=== PATIENT | female | born 1965 | race African-American/Black ===

== ENCOUNTER 2016-12-24 10:51 | Inpatient (IN) | payer OTHER ==
[2016-12-24 12:24] VITALS: BMI 23.3
--- NOTE | 2016-12-24 15:36 | HP ---
Admission [facility] - [facility] Chief Complaint: REHAB TX FOR DRUGS AND ALCOHOL DEPENDENCE Allergies/Adverse Reactions: Allergies Allergy/AdvReac Type Severity Reaction Status Date / Time No Known Allergies Allergy Verified 12/24/16 13:38 History of Present Illness: 51 Y/O AA/FEMALE WITH A HX OF HEROIN,COCAINE AND ALCOHOL DEPENDENCE SEEKING REHAB TX. Exam Limitations: No Limitations - Ebola screening Have you traveled outside of the country in the last 21 days: No Have you had contact with anyone from an Ebola affected area: No Have you been sick,other than usual withdrawal symptoms: No Do you have a fever: No - Review of Systems Constitutional: Loss of Appetite, Changes in sleep, Unintentional Wgt. Loss EENT: reports: Blurred Vision, Dental Problems (MISSING TEETH/KIRAN. DENTURES), Other (HX BILATERAL GLAUCOMA.) Respiratory: reports: Shortness of Breath (HX ASTHMA), Wheezing Cardiac: reports: No Symptoms Reported GI: reports: Constipated, Poor Appetite : reports: No Symptoms Reported Musculoskeletal: reports: Back Pain Integumentary: reports: Rash (FROM THE BELT CONTACT) Neuro: reports: Headache Endocrine: reports: No Symptoms Reported Hematology: reports: No Symptoms Reported Psychiatric: reports: Orientated x3, Anxious, Depressed Other Systems: Reviewed and Negative Patient History - Patient Medical History Hx Anemia: Yes Hx Asthma: Yes (MDI) Hx Chronic Obstructive Pulmonary Disease (COPD): Yes Hx Cancer: No Hx Cardiac Disorders: No Hx Congestive Heart Failure: No Hx Hypertension: Yes (ON MED) Hx Hypercholesterolemia: No Hx Pacemaker: No HX Cerebrovascular Accident: No Hx Seizures: No Hx Dementia: No Hx Diabetes: Yes (Now not on medication--"I DON'T HAVE IT ANYMORE".) Hx Gastrointestinal Disorders: No Hx Liver Disease: No Hx Genitourinary Disorders: No Hx Sexually Transmitted Disorders: No Hx Renal Disease (ESRD): Yes (KIDNEY STONES IN 1991) Hx Thyroid Disease: No Hx Human Immunodeficiency Virus (HIV): No (NEGATIVE HX) Hx Hepatitis C: No Hx Depression: Yes (ON MEDS) Hx Suicide Attempt: No (DENIES) Hx Bipolar Disorder: Yes Hx Schizophrenia: No - Patient Surgical History Past Surgical History: Yes Hx Cholecystectomy: Yes (1989) Anesthesia Reaction: No - PPD History Previous Implant?: Yes Documented Results: Negative w/o proof Implanted On Prior R Admission?: No PPD to be Administered?: Yes - Reproductive History Patient is a Female of Child Bearing Age (11 -55 yrs old): Yes Last Menstrual Period: 08/09/10 Patient : No - Smoking Cessation Smoking history: Current every day smoker Have you smoked in the past 12 months: Yes Aproximately how many cigarettes per day: 5 Hx Chewing Tobacco Use: No Initiated information on smoking cessation: Yes 'Breaking Loose' booklet given: 12/24/16 - Substance & Tx. History Hx Alcohol Use: Yes (BEER "ONCE IN A BLUE OLIVAS") Hx Substance Use: Yes (HEROIN/COCAINE) Substance Use Type: Alcohol, Cocaine, Heroin Hx Substance Use Treatment: Yes ([facility]-DETOX) Family Disease History - Family Disease History Family Disease History: CA: Father ( prostate CA), Mother ( lung /breast CA), Other: Brother (AIDS ) Admission Physical Exam BHS - Vital Signs Vital Signs: Vital Signs - 24 hr 12/24/16 12:15 Temperature 96.4 F L Pulse Rate 68 Respiratory 18 Rate Blood Pressure 128/57 - Physical General Appearance: Yes: No Apparent Distress, Anxious HEENTM: Yes: EOMI, Normocephalic, [place], Pharynx Normal Respiratory: Yes: Chest Non-Tender, Lungs Clear, Normal Breath Sounds, No Respiratory Distress Neck: Yes: No masses,lesions,Nodules, Supple, Trachea in good position Breast: Yes: Breast Exam Deferred Cardiology: Yes: Regular Rhythm, Regular Rate, S1, S2 Abdominal: Yes: Normal Bowel Sounds, Non Tender, Soft Genitourinary: Yes: Other (N/C) Back: Yes: Within Normal Limits Musculoskeletal: Yes: full range of Motion, Gait Steady Extremities: Yes: Normal Range of Motion, Non-Tender Neurological: Yes: dietary supervisor II-XII NML intact, Fully Oriented, Alert Integumentary: Yes: Dry, Warm, Other (HEALED DARK SCARS ON LOWER EXTREMITIES.) Lymphatic: Yes: Within Normal Limits - Diagnostic (1) Asthma Current Visit: Yes Status: Chronic Qualifiers: Asthma severity: mild intermittent Asthma complication type: uncomplicated Qualified Code(s): J45.20 - Mild intermittent asthma, uncomplicated (2) Hypertension Current Visit: Yes Status: Chronic Qualifiers: Hypertension type: essential hypertension Qualified Code(s): I10 - Essential (primary) hypertension (3) Methadone maintenance therapy patient Current Visit: No Status: Inactive (4) Opioid dependence with withdrawal Current Visit: Yes Status: Chronic (5) Cocaine dependence, uncomplicated Current Visit: Yes Status: Chronic (6) History of depression Current Visit: Yes Status: Chronic (7) Contact dermatitis Current Visit: Yes Status: Acute Qualifiers: Contact dermatitis type: unspecified Contact dermatitis trigger: metal Qualified Code(s): L23.0 - Allergic contact dermatitis due to metals Comment: LOWER ABDOMEN ON BELT LEVEL Cleared for Admission S - Detox or Rehab Claeared for Rehab Admission: Yes [facility] Breath Alcohol Content Breath Alcohol Content: 0 Urine Pregancy Test - Result Urine Test Results: Negative- NO Line Present Urine Drug Screen - Results Drug Screen Negative: No Urine Drug Screen Results: TIAGO-Cocaine, OPI-Opiates
[2016-12-24] MEDS ORDERED: IBUPROFEN 400 MG TABLET (FP) PO PRN (15:54)
[2016-12-24] MEDS ORDERED: MAG HYDROX/AL HYDROX/SIMETH 30 ML UNIT-DOSE CUP PO PRN (15:54)
[2016-12-24] MEDS ORDERED: hydrOXYzine PAMOATE 25 MG CAPSULE (FP) PO PRN (15:54)
[2016-12-24] MEDS ORDERED: ACETAMINOPHEN 325 MG TABLET (FP) PO PRN (15:54)
[2016-12-24] MEDS ORDERED: P-EPHED 60MG/TRIPROLIDI 2.5MG TABLET PO PRN (15:54)
[2016-12-24] MEDS ORDERED: MENTHOL/PHENOL 1 EACH UD MM PRN (15:54)
[2016-12-24] MEDS ORDERED: MAGNESIUM CITRATE 300 ML BOTTLE PO PRN (15:54)
[2016-12-24] MEDS ORDERED: MAGNESIUM HYDROX 2400MG/30ML ORAL SUSPENSION 30 ML CUP PO PRN (15:54)
[2016-12-24] MEDS ORDERED: LOPERAMIDE HCL 2 MG CAPSULE PO PRN (15:54)
[2016-12-24] MEDS ORDERED: guaiFENesin/D-METHORPHAN HB 10 ML UNIT-DOSE CUPS PO PRN (15:54)
[2016-12-24] MEDS ORDERED: ALBUTEROL SO4 6.7 GM HFA INHALER IH PRN ×2 (15:56→18:16)
[2016-12-24 20:13] LABS: URINE APPEARANCE SLCLOUDY; URINE BILIRUBIN NEGATIVE (NEGATIVE); URINE BLOOD NEGATIVE (NEGATIVE); URINE COLOR YELLOW; URINE GLUCOSE (UA) NEGATIVE (NEGATIVE); URINE KETONE NEGATIVE (NEGATIVE); URINE LEUK ESTERASE NEGATIVE (NEGATIVE); URINE NITRITE NEGATIVE (NEGATIVE); URINE PROTEIN NEGATIVE (NEGATIVE); URINE UROBILINOGEN 2.0 E.U/dl E.U./dl (0.2-1.0)
[2016-12-24] MEDS: BUDESONIDE/FORMETEROL FUMARATE 160/4.5 mcg INHALER IH SCH (21:30)
[2016-12-24] MEDS: CLOTRIMAZOLE/BETAMET DIPROP TOPICAL CREAM 45 GM TUBE TP SCH (21:30)
[2016-12-24] MEDS: LATANOPROST 0.005% OPHTH SOLN 2.5ML BOTTLE OU SCH (21:31)
[2016-12-24] MEDS: THIAMINE HCL 100 MG TABLET (FP) PO SCH (21:32)
[2016-12-24] MEDS: PROPRANOLOL HCL 20 MG TABLET PO SCH (21:32)
[2016-12-24] MEDS: ACLIDINIUM BROMIDE 400 MCG/INH AERO.POWD IH SCH (21:35)
[2016-12-24] MEDS: NICOTINE 14 MG/24 HOURS TOPICAL PATCH TD SCH (21:36)
[2016-12-25] MEDS ORDERED: PT OWN MED DRAWER 7, Y5N ONE ×3 (08:25→20:06)
[2016-12-25] MEDS: NAPROXEN SODIUM 550 MG PO SCH (10:04)
[2016-12-25] MEDS: CLOTRIMAZOLE/BETAMET DIPROP TOPICAL CREAM 45 GM TUBE TP SCH ×2 (10:04→21:27)
[2016-12-25] MEDS: BUDESONIDE/FORMETEROL FUMARATE 160/4.5 mcg INHALER IH SCH ×2 (10:05→21:22)
[2016-12-25] MEDS: NICOTINE 14 MG/24 HOURS TOPICAL PATCH TD SCH (10:05)
[2016-12-25] MEDS: PRENATAL VITAMINS W/ FOLIC ACID TABLET (FP) PO SCH (10:05)
[2016-12-25] MEDS: NICOTINE POLACRILEX 2 MG GUM BC PRN ×3 (10:07→21:26)
[2016-12-25 10:08] LABS: MCH 31.5 pg (25.7-33.7); MCHC 33.7 g/dl (32.0-36.0); MEAN CELL VOLUME 93.5 fl (80-96); MEAN PLT VOLUME 9.8 fl (7.5-11.1); PLATELET COUNT 121 K/MM3 (134-434); WHITE BLOOD COUNT 4.3 K/mm3 (4.0-10.0)
[2016-12-25 10:22] LABS: ALBUMIN 3.5 g/dl (3.4-5.0); ANION GAP 5 (8-16); CO2 30 mmol/L (21-32); GLUCOSE,RANDOM 89 mg/dL (74-106); SGOT/AST 7 U/L (15-37); SGPT/ALT 13 U/L (12-78)
[2016-12-25 10:24] LABS: ALK PHOS 61 U/L (45-117); BILIRUBIN,TOTAL 0.3 mg/dL (0.2-1.0); CREATININE 0.9 mg/dL (0.55-1.02); TOT PROT 6.4 g/dl (6.4-8.2)
[2016-12-25] MEDS: ACLIDINIUM BROMIDE 400 MCG/INH AERO.POWD IH SCH ×2 (11:00→21:22)
[2016-12-25] MEDS ORDERED: INFLUENZA VACCINE 45 MCG/0.5 ML (MDV 16-17) IM ONE (12:00)
[2016-12-25 12:57] LABS: HIV 1 & 2 AB NEGATIVE; HIV 1 AGp24 NEGATIVE
[2016-12-25] MEDS: CITALOPRAM HYDROBROMIDE 10 MG TABLET (FP) PO SCH (12:59)
[2016-12-25] MEDS: busPIRone HCL 10 MG TABLET (FP) PO SCH ×2 (12:59→21:24)
--- NOTE | 2016-12-25 21:06 | EKG ---
Test Reason : Blood Pressure : / mmHG Vent. Rate : 058 BPM Atrial Rate : 058 BPM P-R Int : 108 ms QRS Dur : 084 ms QT Int : 480 ms P-R-T Axes : 037 056 071 degrees QTc Int : 471 ms SINUS BRADYCARDIA WITH SHORT UT MINIMAL VOLTAGE CRITERIA FOR LVH, MAY BE NORMAL VARIANT BORDERLINE ECG NO PREVIOUS ECGS AVAILABLE Confirmed by MITCHEL RUTH MD ([id number]) on 12/25/2016 9:05:38 PM Referred By: Rebekah Ryder Confirmed By:MITCHEL RUTH MD
[2016-12-25] MEDS: LATANOPROST 0.005% OPHTH SOLN 2.5ML BOTTLE OU SCH (21:23)
[2016-12-25] MEDS: THIAMINE HCL 100 MG TABLET (FP) PO SCH (21:23)
[2016-12-25] MEDS: PROPRANOLOL HCL 20 MG TABLET PO SCH (21:24)
[2016-12-25] MEDS: diphenhydrAMINE HCL 50 MG CAPSULE PO PRN (21:25)
[2016-12-26] MEDS ORDERED: PT OWN MED DRAWER 7, Y5N ONE ×2 (08:24→20:18)
[2016-12-26] MEDS: ACLIDINIUM BROMIDE 400 MCG/INH AERO.POWD IH SCH ×2 (09:46→21:19)
[2016-12-26] MEDS: BUDESONIDE/FORMETEROL FUMARATE 160/4.5 mcg INHALER IH SCH ×2 (09:46→21:19)
[2016-12-26] MEDS: CITALOPRAM HYDROBROMIDE 10 MG TABLET (FP) PO SCH (09:47)
[2016-12-26] MEDS: NAPROXEN SODIUM 550 MG PO SCH (09:47)
[2016-12-26] MEDS: CLOTRIMAZOLE/BETAMET DIPROP TOPICAL CREAM 45 GM TUBE TP SCH ×2 (09:47→21:22)
[2016-12-26] MEDS: busPIRone HCL 10 MG TABLET (FP) PO SCH ×2 (09:47→21:21)
[2016-12-26] MEDS: PRENATAL VITAMINS W/ FOLIC ACID TABLET (FP) PO SCH (09:48)
[2016-12-26] MEDS: NICOTINE 14 MG/24 HOURS TOPICAL PATCH TD SCH (09:48)
[2016-12-26] MEDS: NICOTINE POLACRILEX 2 MG GUM BC PRN ×3 (09:49→17:57)
[2016-12-26] MEDS: THIAMINE HCL 100 MG TABLET (FP) PO SCH (21:20)
[2016-12-26] MEDS: LATANOPROST 0.005% OPHTH SOLN 2.5ML BOTTLE OU SCH (21:21)
[2016-12-26] MEDS: diphenhydrAMINE HCL 50 MG CAPSULE PO PRN (21:21)
[2016-12-26] MEDS: PROPRANOLOL HCL 20 MG TABLET PO SCH (21:21)
[2016-12-27 06:49] VITALS: TEMP 98
[2016-12-27] MEDS: NICOTINE 14 MG/24 HOURS TOPICAL PATCH TD SCH (10:15)
[2016-12-27] MEDS: busPIRone HCL 10 MG TABLET (FP) PO SCH (10:15)
[2016-12-27] MEDS: NAPROXEN SODIUM 550 MG PO SCH (10:15)
[2016-12-27] MEDS: PRENATAL VITAMINS W/ FOLIC ACID TABLET (FP) PO SCH (10:15)
[2016-12-27] MEDS: CITALOPRAM HYDROBROMIDE 10 MG TABLET (FP) PO SCH (10:15)
[2016-12-27] MEDS: ACLIDINIUM BROMIDE 400 MCG/INH AERO.POWD IH SCH (10:16)
[2016-12-27] MEDS: BUDESONIDE/FORMETEROL FUMARATE 160/4.5 mcg INHALER IH SCH (10:16)
[2016-12-27] MEDS: CLOTRIMAZOLE/BETAMET DIPROP TOPICAL CREAM 45 GM TUBE TP SCH (10:17)
[2016-12-27] MEDS: NICOTINE POLACRILEX 2 MG GUM BC PRN (10:17)
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
[2016-12-27] MEDS ORDERED: amLODIPine BESYLATE 10 MG TABLET (FP) PO SCH (12:15)
[2016-12-27 12:55] VITALS: BP 162/95; PULSE 63
--- NOTE | 2016-12-27 16:38 | PN ---
SANJAY Progress Note Note: Patient came to my office and reports that she decided to sign out tomorrow since she has something important to do at home.Patient ignored our recommendations to continue stabilization in inpatient rehabilitation and is willing to continue aftercare at [facility] in the [place].She will continue current medications as per plan .Scripts for 30 days provided.
== END 2016-12-27 23:01 | disposition left against medical advice (07) | DRG 770 ==
LOC: YASAS 10:51 → Y3E 16:32
PROVIDERS: ADMIT Psychiatry & Neurology Psychiatry; ATTEND Psychiatry & Neurology Psychiatry
PROC: HZ42ZZZ Group Counseling for Substance Abuse Treatment, Cognitive-Behavioral (ICD-10-PCS; principal; 2016-12-27)
DX: F11.23 Opioid dependence with withdrawal (principal); F14.20 Cocaine dependence, uncomplicated; F31.89 Other bipolar disorder; I10 Essential (primary) hypertension; L23.0 Allergic contact dermatitis due to metals
CPT/HCPCS: 36415; 80053; 81003; 85027; 86593; 87389; 93005; 93010

== ENCOUNTER 2018-06-28 10:56 | Inpatient (IN) | payer OTHER ==
[2018-06-28 12:03] VITALS: BMI 25.0
--- NOTE | 2018-06-28 12:25 | HP ---
Admission [facility] - [facility] Chief Complaint: i minerva help to go to rehab from heroin and cocaine Allergies/Adverse Reactions: Allergies Allergy/AdvReac Type Severity Reaction Status Date / Time No Known Allergies Allergy Verified 06/28/18 12:08 History of Present Illness: this 53 years old female with heroin and cocaine dependence seeking rehab,last treatment [facility] 12/27/16 to 12/27/16 not completed hypertention and copd nicotine dependence bipolar disorder multiple admissions in detox and rehab but relapsing longest sobriety 7 years glaucoma in right eye for 4 years on suboxone maintenance 8mgs/2mgs sl film daily last filled prescription Exam Limitations: No Limitations - Ebola screening Have you traveled outside of the country in the last 21 days: No Have you had contact with anyone from an Ebola affected area: No Have you been sick,other than usual withdrawal symptoms: No Do you have a fever: No - Review of Systems Constitutional: No Symptoms Reported EENT: reports: No Symptoms Reported, Other (glaucoma right eye for 4 years) Respiratory: reports: Other (copd) Cardiac: reports: No Symptoms Reported GI: reports: No Symptoms Reported : reports: No Symptoms Reported Musculoskeletal: reports: No Symptoms Reported Integumentary: reports: No Symptoms Reported Neuro: reports: No Symptoms reported Endocrine: reports: No Symptoms Reported Hematology: reports: No Symptoms Reported Psychiatric: reports: No Sypmtoms Reported, Judgement Intact, Mood/Affect Appropiate, Orientated x3 (bipolar disorder) Patient History - Patient Medical History Hx Anemia: Yes Hx Chronic Obstructive Pulmonary Disease (COPD): Yes (on albuterol and symbicort and spiriva) Hx Cancer: No Hx Cardiac Disorders: No Hx Congestive Heart Failure: No Hx Hypertension: Yes (ON MED) Hx Hypercholesterolemia: No Hx Pacemaker: No HX Cerebrovascular Accident: No Hx Seizures: No Hx Dementia: No Hx Diabetes: Yes (Now not on medication--"I DON'T HAVE IT ANYMORE".) Hx Gastrointestinal Disorders: No Hx Liver Disease: No Hx Genitourinary Disorders: No Hx Sexually Transmitted Disorders: No Hx Renal Disease (ESRD): Yes (KIDNEY STONES IN 1991) Hx Thyroid Disease: No Hx Human Immunodeficiency Virus (HIV): No (NEGATIVE HX 11/17 ) Hx Hepatitis C: No Hx Depression: Yes (ON MEDS) Hx Suicide Attempt: No (DENIES) Hx Bipolar Disorder: Yes Hx Schizophrenia: No Other Medical History: no suicidal,no homicidal - Patient Surgical History Past Surgical History: Yes Hx Neurologic Surgery: No Hx Cataract Extraction: No Hx Cardiac Surgery: No Hx Lung Surgery: No Hx Breast Surgery: No Hx Breast Biopsy: No Hx Abdominal Surgery: No Hx Appendectomy: No Hx Cholecystectomy: Yes (1989) Hx Genitourinary Surgery: No Hx Section: No Hx Orthopedic Surgery: No Anesthesia Reaction: No - PPD History Previous Implant?: Yes Documented Results: Negative w/o proof Implanted On Prior [facility] Admission?: Yes Date: 12/26/16 PPD to be Administered?: Yes - Reproductive History Patient is a Female of Child Bearing Age (11 -55 yrs old): Yes Last Menstrual Period: 08/09/10 Patient : No - Smoking Cessation Smoking history: Current every day smoker Have you smoked in the past 12 months: Yes Aproximately how many cigarettes per day: 5 Hx Chewing Tobacco Use: No Initiated information on smoking cessation: Yes 'Breaking Loose' booklet given: 06/28/18 - Substance & Tx. History Hx Alcohol Use: No Hx Substance Use: Yes Substance Use Type: Cocaine, Heroin Hx Substance Use Treatment: Yes ([facility] 12/24/16 to 12/27/16 not completed) - Substances Abused Heroin Route: Inhalation Frequency: 3-6 times per week Amount used: 1-2 BAGS Age of first use: 32 Date of Last Use: 06/27/18 Crack Route: Smoking Frequency: Daily Amount used: $50 Age of first use: 19 Date of Last Use: 06/28/18 Family Disease History - Family Disease History Family Disease History: CA: Father ( prostate CA), Mother ( lung /breast CA), Other: Brother (AIDS ) Admission Physical Exam BHS - Vital Signs Vital Signs: Vital Signs - 24 hr 06/28/18 12:00 Temperature 97.2 F L Pulse Rate 72 Respiratory 20 Rate Blood Pressure 172/97 - Physical General Appearance: Yes: Within Normal Limits HEENTM: Yes: Hearing grossly Normal, Normal ENT Inspection, Pharynx Normal, Other (glaucoma right eye) Respiratory: Yes: Lungs Clear, Normal Breath Sounds, No Respiratory Distress Neck: Yes: Within Normal Limits, Supple, Trachea in good position Breast: Yes: Breast Exam Deferred Cardiology: Yes: Within Normal Limits, Regular Rhythm, Regular Rate, S1, S2 Abdominal: Yes: Within Normal Limits, Normal Bowel Sounds, Non Tender, Flat, Soft Genitourinary: Yes: Within Normal Limits Back: Yes: Within Normal Limits Musculoskeletal: Yes: Within Normal Limits Extremities: Yes: Within Normal Limits Neurological: Yes: tool marker II-XII NML intact, Fully Oriented, Alert, Motor Strength 5/5 Integumentary: Yes: Within Normal Limits Lymphatic: Yes: Within Normal Limits - Diagnostic (1) Heroin dependence Current Visit: Yes Status: Acute (2) Cocaine dependence Current Visit: Yes Status: Acute (3) Hypertension Current Visit: No Status: Chronic Qualifiers: Hypertension type: essential hypertension Qualified Code(s): I10 - Essential (primary) hypertension (4) OPCD (olivopontocerebellar degeneration) Current Visit: Yes Status: Acute (5) COPD (chronic obstructive pulmonary disease) Current Visit: Yes Status: Acute (6) Weight loss Current Visit: Yes Status: Acute (7) Encounter for monitoring Suboxone maintenance therapy Current Visit: Yes Status: Acute Cleared for Admission BHS - Detox or Rehab Claeared for Rehab Admission: Yes [facility] Breath Alcohol Content Breath Alcohol Content: 0 Urine Pregancy Test - Result Urine Test Results: Negative- NO Line Present Urine Drug Screen - Results Drug Screen Negative: No Urine Drug Screen Results: TIAGO-Cocaine, OPI-Opiates Inpatient Rehab Admission - Initial Determination Are CD services needed?: Yes Free of communicable disease: Yes Not in need of hospitalization: Yes - Rehab Admission Criteria Previous failed treatment: Yes Poor recovery environment: Yes Comorbidities: Yes Lacks judgement: No Patient is meeting Inpatient Rehab admission criteria:: Yes
[2018-06-28] MEDS ORDERED: ACETAMINOPHEN 325 MG TABLET (FP) PO PRN (12:49)
[2018-06-28] MEDS ORDERED: guaiFENesin/D-METHORPHAN HB 10 ML UNIT-DOSE CUPS PO PRN (12:49)
[2018-06-28] MEDS ORDERED: MAG HYDROX/AL HYDROX/SIMETH 30 ML UNIT-DOSE CUP PO PRN (12:49)
[2018-06-28] MEDS ORDERED: MAGNESIUM HYDROX 2400MG/30ML ORAL SUSPENSION 30 ML CUP PO PRN (12:49)
[2018-06-28] MEDS ORDERED: LOPERAMIDE HCL 2 MG CAPSULE PO PRN (12:49)
[2018-06-28] MEDS ORDERED: MAGNESIUM CITRATE 300 ML BOTTLE PO PRN (12:49)
[2018-06-28] MEDS ORDERED: MENTHOL/PHENOL 1 EACH UD MM PRN (12:49)
[2018-06-28] MEDS ORDERED: P-EPHED 60MG/TRIPROLIDI 2.5MG TABLET PO PRN (12:49)
[2018-06-28] MEDS ORDERED: IBUPROFEN 400 MG TABLET (FP) PO PRN (12:49)
[2018-06-28] MEDS ORDERED: ALBUTEROL SO4 8 GM HFA INHALER IH PRN (12:51)
--- NOTE | 2018-06-28 12:56 | PN ---
S Progress Note Note: patient has borderlined dm,will monitor bgm daily
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
[2018-06-28 14:36] LABS: HEMATOCRIT 43.7 % (32.4-45.2); MCH 32.1 pg (25.7-33.7); MCHC 34.3 g/dl (32.0-36.0); MEAN CELL VOLUME 93.4 fl (80-96); MEAN PLT VOLUME 9.7 fl (7.5-11.1); PLATELET COUNT 151 K/MM3 (134-434); RBC 4.67 M/mm3 (3.60-5.2); RDW 12.8 % (11.6-15.6); WHITE BLOOD COUNT 4.9 K/mm3 (4.0-10.0)
[2018-06-28 14:54] LABS: ALBUMIN 4.3 g/dl (3.4-5.0); ANION GAP 5 MMOL/L (8-16); BLOOD UREA NITROGEN 8 mg/dL (7-18); CALCIUM 9.3 mg/dL (8.5-10.1); CHLORIDE 104 mmol/L (98-107); CO2 29 mmol/L (21-32); GLUCOSE,RANDOM 93 mg/dL (74-106); POTASSIUM 4.1 mmol/L (3.5-5.1); SGOT/AST 32 U/L (15-37); SGPT/ALT 36 U/L (12-78); SODIUM 138 mmol/L (136-145)
[2018-06-28 14:55] LABS: ALK PHOS 67 U/L (45-117); BILIRUBIN,TOTAL 0.3 mg/dL (0.2-1.0); CREATININE 1.1 mg/dL (0.55-1.02); TOT PROT 8.1 g/dl (6.4-8.2)
[2018-06-28] MEDS: CITALOPRAM HYDROBROMIDE 10 MG TABLET (FP) PO SCH (15:06)
[2018-06-28] MEDS: TIOTROPIUM BROMIDE 2.5 MCG (SPIRIVA) RESPIMAT INHALER IH SCH (15:10)
[2018-06-28] MEDS ORDERED: PT OWN MED DRAWER 7, Y5N ONE ×2 (15:43→21:40)
[2018-06-28 18:50] LABS: URINE APPEARANCE CLEAR; URINE BILIRUBIN NEGATIVE (<2.0 mg/dL); URINE COLOR LTYELLOW; URINE GLUCOSE (UA) NEGATIVE (NEGATIVE); URINE KETONE NEGATIVE (NEGATIVE); URINE LEUK ESTERASE NEGATIVE (NEGATIVE); URINE NITRITE NEGATIVE (NEGATIVE); URINE PROTEIN NEGATIVE (NEGATIVE); URINE UROBILINOGEN NEGATIVE mg/dL (0.2-1.0)
[2018-06-28] MEDS ORDERED: TUBERCULIN PPD 5 TU/0.1ML VIAL ID ONE (18:53)
[2018-06-28 19:00] LABS: EPI CELLS FEW /HPF (FEW)
[2018-06-28] MEDS: LATANOPROST 0.005% OPHTH SOLN 2.5ML BOTTLE OD SCH (21:39)
[2018-06-28] MEDS: GABAPENTIN 300 MG CAPSULE (FP) PO SCH (21:41)
[2018-06-28] MEDS: BUDESONIDE/FORMETEROL FUMARATE 80/4.5 mcg INHALER IH SCH (21:42)
[2018-06-28] MEDS: THIAMINE HCL 100 MG TABLET (FP) PO SCH (21:44)
[2018-06-29] MEDS ORDERED: PT OWN MED DRAWER 7, Y5N ONE ×3 (08:48→21:21)
[2018-06-29] MEDS: CITALOPRAM HYDROBROMIDE 10 MG TABLET (FP) PO SCH (09:50)
[2018-06-29] MEDS: GABAPENTIN 300 MG CAPSULE (FP) PO SCH ×2 (09:51→21:19)
[2018-06-29] MEDS: BUDESONIDE/FORMETEROL FUMARATE 80/4.5 mcg INHALER IH SCH ×2 (09:51→21:19)
[2018-06-29] MEDS: PRENATAL VITAMINS W/ FOLIC ACID TABLET (FP) PO SCH (09:51)
[2018-06-29] MEDS: BUPRENORPHINE/NALOXONE 8 MG/2 MG FILM PACKET SL SCH (09:52)
[2018-06-29] MEDS: TIOTROPIUM BROMIDE 2.5 MCG (SPIRIVA) RESPIMAT INHALER IH SCH (09:52)
[2018-06-29] MEDS: NICOTINE POLACRILEX 2 MG GUM BC PRN ×2 (10:27→21:21)
--- NOTE | 2018-06-29 12:18 | EKG ---
Test Reason : Blood Pressure : / mmHG Vent. Rate : 065 BPM Atrial Rate : 065 BPM P-R Int : 116 ms QRS Dur : 084 ms QT Int : 424 ms P-R-T Axes : 001 011 004 degrees QTc Int : 440 ms NORMAL SINUS RHYTHM MODERATE VOLTAGE CRITERIA FOR LVH, MAY BE NORMAL VARIANT BORDERLINE ECG WHEN COMPARED WITH ECG OF 24-DEC-2016 18:40, T WAVE INVERSION NOW EVIDENT IN INFERIOR LEADS Confirmed by RENATO COLLIER, ANALY ([id number]) on 06/29/2018 12:18:15 PM Referred By: Confirmed By:ANALY GROSS MD
--- NOTE | 2018-06-29 14:36 | PN ---
[facility] Progress Note Note: Vital Signs Temperature 98.4 F 06/29/18 07:06 Pulse Rate 78 06/29/18 07:06 Respiratory Rate 18 06/29/18 07:06 Blood Pressure 156/85 06/29/18 07:06 O2 Sat by Pulse Oximetry (%) Laboratory Last Values WBC 4.9 K/mm3 (4.0-10.0) 06/28/18 12:50 RBC 4.67 M/mm3 (3.60-5.2) 06/28/18 12:50 Hgb 15.0 GM/dL (10.7-15.3) 06/28/18 12:50 Hct 43.7 % (32.4-45.2) 06/28/18 12:50 MCV 93.4 fl (80-96) 06/28/18 12:50 MCH 32.1 pg (25.7-33.7) 06/28/18 12:50 MCHC 34.3 g/dl (32.0-36.0) 06/28/18 12:50 RDW 12.8 % (11.6-15.6) 06/28/18 12:50 Plt Count 151 K/MM3 (134-434) D 06/28/18 12:50 MPV 9.7 fl (7.5-11.1) 06/28/18 12:50 Sodium 138 mmol/L (136-145) 06/28/18 12:50 Potassium 4.1 mmol/L (3.5-5.1) 06/28/18 12:50 Chloride 104 mmol/L (98-107) 06/28/18 12:50 Carbon Dioxide 29 mmol/L (21-32) 06/28/18 12:50 Anion Gap 5 MMOL/L (8-16) L 06/28/18 12:50 BUN 8 mg/dL (7-18) 06/28/18 12:50 Creatinine 1.1 mg/dL (0.55-1.02) H 06/28/18 12:50 Creat Clearance w eGFR 52.36 (>60) 06/28/18 12:50 POC Glucometer 112 UNITS (80-120) 06/29/18 06:24 Random Glucose 93 mg/dL (74-106) 06/28/18 12:50 Calcium 9.3 mg/dL (8.5-10.1) 06/28/18 12:50 Total Bilirubin 0.3 mg/dL (0.2-1.0) 06/28/18 12:50 AST 32 U/L (15-37) 06/28/18 12:50 ALT 36 U/L (12-78) 06/28/18 12:50 Alkaline Phosphatase 67 U/L (45-117) 06/28/18 12:50 Total Protein 8.1 g/dl (6.4-8.2) 06/28/18 12:50 Albumin 4.3 g/dl (3.4-5.0) 06/28/18 12:50 Urine Color Ltyellow 06/28/18 15:34 Urine Appearance Clear 06/28/18 15:34 Urine pH 7.0 (5.0-8.0) 06/28/18 15:34 Ur Specific [place] 1.005 (1.001-1.035) 06/28/18 15:34 Urine Protein Negative (NEGATIVE) 06/28/18 15:34 Urine Glucose (UA) Negative (NEGATIVE) 06/28/18 15:34 Urine Ketones Negative (NEGATIVE) 06/28/18 15:34 Urine Blood 1+ (NEGATIVE) H 06/28/18 15:34 Urine Nitrite Negative (NEGATIVE) 06/28/18 15:34 Urine Bilirubin Negative (<2.0 mg/dL) 06/28/18 15:34 Urine Urobilinogen Negative mg/dL (0.2-1.0) 06/28/18 15:34 Ur Leukocyte Esterase Negative (NEGATIVE) 06/28/18 15:34 Urine WBC (Auto) 1 /hpf (3-5) 06/28/18 15:34 Urine RBC (Auto) <1 /hpf (0-3) 06/28/18 15:34 Ur Epithelial Cells Few /HPF (FEW) 06/28/18 15:34 RPR Titer Nonreactive (NONREACTIVE) 06/28/18 12:50 monitor BP continue to monitor
[2018-06-29] MEDS: THIAMINE HCL 100 MG TABLET (FP) PO SCH (21:19)
[2018-06-29] MEDS: MELATONIN 5 MG TABLETS PO PRN (21:21)
[2018-06-29] MEDS: LATANOPROST 0.005% OPHTH SOLN 2.5ML BOTTLE OD SCH (21:41)
[2018-06-30] MEDS: CITALOPRAM HYDROBROMIDE 10 MG TABLET (FP) PO SCH (09:59)
[2018-06-30] MEDS: PRENATAL VITAMINS W/ FOLIC ACID TABLET (FP) PO SCH (09:59)
[2018-06-30] MEDS: GABAPENTIN 300 MG CAPSULE (FP) PO SCH ×2 (09:59→21:43)
[2018-06-30] MEDS: BUDESONIDE/FORMETEROL FUMARATE 80/4.5 mcg INHALER IH SCH ×2 (10:00→21:43)
[2018-06-30] MEDS: TIOTROPIUM BROMIDE 2.5 MCG (SPIRIVA) RESPIMAT INHALER IH SCH (10:01)
[2018-06-30] MEDS: BUPRENORPHINE/NALOXONE 8 MG/2 MG FILM PACKET SL SCH (10:02)
[2018-06-30] MEDS: NICOTINE POLACRILEX 2 MG GUM BC PRN (10:06)
[2018-06-30] MEDS ORDERED: PT OWN MED DRAWER 7, Y5N ONE ×2 (11:36→19:24)
[2018-06-30] MEDS: THIAMINE HCL 100 MG TABLET (FP) PO SCH (21:43)
[2018-06-30] MEDS: LATANOPROST 0.005% OPHTH SOLN 2.5ML BOTTLE OD SCH (21:44)
[2018-06-30] MEDS: MELATONIN 5 MG TABLETS PO PRN (21:48)
[2018-07-01] MEDS: hydrOXYzine PAMOATE 50 MG CAPSULE (FP) PO PRN ×2 (06:36→21:39)
[2018-07-01] MEDS: TIOTROPIUM BROMIDE 2.5 MCG (SPIRIVA) RESPIMAT INHALER IH SCH (09:52)
[2018-07-01] MEDS: CITALOPRAM HYDROBROMIDE 10 MG TABLET (FP) PO SCH (09:52)
[2018-07-01] MEDS: BUDESONIDE/FORMETEROL FUMARATE 80/4.5 mcg INHALER IH SCH ×2 (09:52→21:40)
[2018-07-01] MEDS: PRENATAL VITAMINS W/ FOLIC ACID TABLET (FP) PO SCH (09:52)
[2018-07-01] MEDS: GABAPENTIN 300 MG CAPSULE (FP) PO SCH ×2 (09:52→21:39)
[2018-07-01] MEDS: BUPRENORPHINE/NALOXONE 8 MG/2 MG FILM PACKET SL SCH (09:52)
[2018-07-01] MEDS: NICOTINE POLACRILEX 2 MG GUM BC PRN ×2 (10:03→21:42)
[2018-07-01] MEDS: MELATONIN 5 MG TABLETS PO PRN (21:39)
[2018-07-01] MEDS: THIAMINE HCL 100 MG TABLET (FP) PO SCH (21:39)
[2018-07-01] MEDS ORDERED: PT OWN MED DRAWER 7, Y5N ONE (21:41)
[2018-07-01] MEDS: LATANOPROST 0.005% OPHTH SOLN 2.5ML BOTTLE OD SCH (21:42)
[2018-07-02] MEDS: NICOTINE POLACRILEX 2 MG GUM BC PRN ×3 (06:41→15:23)
[2018-07-02] MEDS ORDERED: PT OWN MED DRAWER 7, Y5N ONE (08:39)
[2018-07-02] MEDS: CITALOPRAM HYDROBROMIDE 10 MG TABLET (FP) PO SCH (09:34)
[2018-07-02] MEDS: GABAPENTIN 300 MG CAPSULE (FP) PO SCH ×2 (09:34→21:20)
[2018-07-02] MEDS: PRENATAL VITAMINS W/ FOLIC ACID TABLET (FP) PO SCH (09:34)
[2018-07-02] MEDS: BUPRENORPHINE/NALOXONE 8 MG/2 MG FILM PACKET SL SCH (09:34)
[2018-07-02] MEDS: BUDESONIDE/FORMETEROL FUMARATE 80/4.5 mcg INHALER IH SCH ×2 (09:35→21:22)
[2018-07-02] MEDS: TIOTROPIUM BROMIDE 2.5 MCG (SPIRIVA) RESPIMAT INHALER IH SCH (09:35)
[2018-07-02] MEDS: hydrOXYzine PAMOATE 50 MG CAPSULE (FP) PO PRN (15:23)
[2018-07-02] MEDS: MELATONIN 5 MG TABLETS PO PRN (21:20)
[2018-07-02] MEDS: THIAMINE HCL 100 MG TABLET (FP) PO SCH (21:20)
[2018-07-02] MEDS: LATANOPROST 0.005% OPHTH SOLN 2.5ML BOTTLE OD SCH (21:22)
[2018-07-03] MEDS ORDERED: PT OWN MED DRAWER 7, Y5N ONE ×2 (08:23→13:38)
[2018-07-03] MEDS: GABAPENTIN 300 MG CAPSULE (FP) PO SCH ×2 (09:34→21:35)
[2018-07-03] MEDS: CITALOPRAM HYDROBROMIDE 10 MG TABLET (FP) PO SCH (09:34)
[2018-07-03] MEDS: PRENATAL VITAMINS W/ FOLIC ACID TABLET (FP) PO SCH (09:34)
[2018-07-03] MEDS: TIOTROPIUM BROMIDE 2.5 MCG (SPIRIVA) RESPIMAT INHALER IH SCH (09:35)
[2018-07-03] MEDS: BUPRENORPHINE/NALOXONE 8 MG/2 MG FILM PACKET SL SCH (09:35)
[2018-07-03] MEDS: BUDESONIDE/FORMETEROL FUMARATE 80/4.5 mcg INHALER IH SCH ×2 (09:35→21:36)
[2018-07-03] MEDS: hydrOXYzine PAMOATE 50 MG CAPSULE (FP) PO PRN ×2 (13:38→21:35)
[2018-07-03] MEDS: NICOTINE POLACRILEX 2 MG GUM BC PRN (13:38)
[2018-07-03] MEDS: THIAMINE HCL 100 MG TABLET (FP) PO SCH (21:35)
[2018-07-03] MEDS: LATANOPROST 0.005% OPHTH SOLN 2.5ML BOTTLE OD SCH (21:37)
[2018-07-03] MEDS: MELATONIN 5 MG TABLETS PO PRN (21:37)
[2018-07-04] MEDS: hydrOXYzine PAMOATE 50 MG CAPSULE (FP) PO PRN ×2 (06:30→21:41)
[2018-07-04] MEDS: GABAPENTIN 300 MG CAPSULE (FP) PO SCH ×2 (09:51→21:40)
[2018-07-04] MEDS: PRENATAL VITAMINS W/ FOLIC ACID TABLET (FP) PO SCH (09:51)
[2018-07-04] MEDS: CITALOPRAM HYDROBROMIDE 10 MG TABLET (FP) PO SCH (09:51)
[2018-07-04] MEDS: TIOTROPIUM BROMIDE 2.5 MCG (SPIRIVA) RESPIMAT INHALER IH SCH (09:52)
[2018-07-04] MEDS: BUDESONIDE/FORMETEROL FUMARATE 80/4.5 mcg INHALER IH SCH ×2 (09:52→21:41)
[2018-07-04] MEDS: BUPRENORPHINE/NALOXONE 8 MG/2 MG FILM PACKET SL SCH (09:54)
[2018-07-04] MEDS: NICOTINE POLACRILEX 2 MG GUM BC PRN ×2 (09:56→21:42)
[2018-07-04] MEDS ORDERED: PT OWN MED DRAWER 7, Y5N ONE (19:50)
[2018-07-04] MEDS: LATANOPROST 0.005% OPHTH SOLN 2.5ML BOTTLE OD SCH (21:39)
[2018-07-04] MEDS: MELATONIN 5 MG TABLETS PO PRN (21:41)
[2018-07-04] MEDS: THIAMINE HCL 100 MG TABLET (FP) PO SCH (21:41)
[2018-07-05 06:49] VITALS: TEMP 98.2
[2018-07-05] MEDS ORDERED: PT OWN MED DRAWER 7, Y5N ONE (08:08)
[2018-07-05 09:23] VITALS: BP 112/71; PULSE 61
[2018-07-05] MEDS: GABAPENTIN 300 MG CAPSULE (FP) PO SCH (09:34)
[2018-07-05] MEDS: PRENATAL VITAMINS W/ FOLIC ACID TABLET (FP) PO SCH (09:34)
[2018-07-05] MEDS: CITALOPRAM HYDROBROMIDE 10 MG TABLET (FP) PO SCH (09:34)
[2018-07-05] MEDS: BUDESONIDE/FORMETEROL FUMARATE 80/4.5 mcg INHALER IH SCH (09:35)
[2018-07-05] MEDS: BUPRENORPHINE/NALOXONE 8 MG/2 MG FILM PACKET SL SCH (09:35)
[2018-07-05] MEDS: TIOTROPIUM BROMIDE 2.5 MCG (SPIRIVA) RESPIMAT INHALER IH SCH (09:35)
[2018-07-05] MEDS: hydrOXYzine PAMOATE 50 MG CAPSULE (FP) PO PRN (09:36)
--- NOTE | 2018-07-05 15:27 | PN ---
Psychiatric Progress Note Vital Signs: Vital Signs Period Temp Pulse Resp BP Sys/[place] Pulse Ox Last 24 Hr 98.2 F 55-61 -18 111-112/71-72 Date of Session: 07/05/18 Chief Complaint:: Discharge visit. HPI: Cocaine,Opioid dependence comorbid with Bipolar disorder. ROS: Significant for COPD,OPCD,BA. Current Medications: Active Medications Generic Name Dose Route Start Last Admin Trade Name Freq PRN Reason Stop Dose Admin Acetaminophen 650 mg 06/28/18 12:49 Tylenol - PO Q4H PRN FEVER Al Hydroxide/Mg Hydroxide 30 ml 06/28/18 12:49 Mylanta Oral Suspension - PO Q6H PRN DYSPEPSIA Albuterol Sulfate 2 puff 06/28/18 12:51 Ventolin Hfa Inhaler - IH Q4H PRN ASTHMA Budesonide/Formoterol Fumarate 2 puff 06/28/18 22:00 07/05/18 09:35 Symbicort 80/4.5mcg - IH 2 inh BID MIR Administration Citalopram Hydrobromide 10 mg 06/28/18 14:45 07/05/18 09:34 Celexa - PO 10 mg DAILY MIR Administration Eucalyptus/Menthol/Phenol/Sorbitol 1 each 06/28/18 12:49 Cepastat Lozenge - MM Q4H PRN SORE THROAT Gabapentin 600 mg 06/28/18 22:00 07/05/18 09:34 Neurontin - PO 600 mg BID MIR Administration Guaifenesin 10 ml 06/28/18 12:49 Robitussin Dm - PO Q6H PRN COUGH Hydroxyzine Pamoate 50 mg 06/28/18 12:49 07/05/18 09:36 Vistaril - PO 50 mg Q4H PRN Administration AGITATION Ibuprofen 400 mg 06/28/18 12:49 06/30/18 10:02 Motrin - PO 400 mg Q6H PRN Administration Pain level 4-6 Latanoprost 1 drop 06/28/18 22:00 07/04/18 21:39 Xalatan 0.005% Eye Drops - OD 1 drop HS MIR Administration Loperamide HCl 4 mg 06/28/18 12:49 Imodium - PO Q6H PRN DIARRHEA Magnesium Citrate 300 ml 06/28/18 12:49 Citroma - PO Q48H PRN CONSTIPATION Magnesium Hydroxide 30 ml 06/28/18 12:49 Milk Of Magnesia - PO DAILY PRN CONSTIPATION Melatonin 5 mg 06/28/18 22:00 07/04/18 21:41 Melatonin PO 5 mg HS PRN Administration INSOMNIA Nicotine Polacrilex 2 mg 06/28/18 12:49 07/04/18 21:42 Nicorette Gum - BC 2 mg Q2H PRN Administration NICOTINE REPLACEMENT RX Multivit/Folic Acid/Iron 1 tab 06/29/18 10:00 07/05/18 09:34 Vitamins (Sjr) - PO 1 tab DAILY MIR Administration Propranolol HCl 20 mg 06/28/18 22:00 07/04/18 21:41 Inderal - PO 20 mg HS MIR Administration Pseudoephedrine/Triprolidine 1 combo 06/28/18 12:49 Actifed - PO TID PRN NASAL CONGESTION Thiamine HCl 100 mg 06/28/18 22:00 07/04/18 21:41 Vitamin B1 - PO 100 mg HS MIR Administration Tiotropium [place] 1 puff 06/28/18 14:00 07/05/18 09:35 Spiriva Respimat IH 1 puff DAILY MIR Administration Current Side Effect: No Lab tests ordered: No Lab tests reviewed: Yes Provider note:: Patient decided to sign out today since she feels like she completed her treatment on inpatient .Patient has partially met her treatment goals and will ontinue to address her issues on AA and NA meeting.Patient will continue current medications as per plan.Scripts for Celexa 10 mg po daily and Neurontin 600 mg po bid for 30 days supply provided. Supportive therapy provided focusing on relapse prevention. Patient is stable for dsicharge today.. Total face to face time:: 30 Mental Status Exam - Mental Status Exam Alert and Oriented to: Time, Place, Person Cognitive Function: Grossly Intact Patient Appearance: Unkempt Mood: Irritable Affect: Labile Patient Behavior: Restless Speech Pattern: Clear Voice Loudness: Normal Thought Process: Goal Oriented Thought Disorder: Not Present Hallucinations: Denies Suicidal Ideation: Denies Insight/Judgement: Fair Sleep: Fair Appetite: Good Muscle strength/Tone: Normal Gait/Station: Normal Psychiatric Treatment Plan - Problem List (1) COPD (chronic obstructive pulmonary disease) Current Visit: Yes (2) Cocaine dependence Current Visit: Yes (3) Encounter for monitoring Suboxone maintenance therapy Current Visit: Yes (4) Heroin dependence Current Visit: Yes (5) OPCD (olivopontocerebellar degeneration) Current Visit: Yes (6) Asthma Current Visit: Yes Qualifiers: Asthma severity: mild intermittent Asthma complication type: uncomplicated (7) Bipolar 1 disorder, depressed Current Visit: Yes
== END 2018-07-05 15:20 | disposition home or self-care (01) | DRG 772 ==
LOC: YASAS 10:56 → Y3E 13:34
PROVIDERS: ADMIT Psychiatry & Neurology Psychiatry; ATTEND Psychiatry & Neurology Psychiatry
PROC: HZ42ZZZ Group Counseling for Substance Abuse Treatment, Cognitive-Behavioral (ICD-10-PCS; principal; 2018-06-28)
DX: F11.20 Opioid dependence, uncomplicated (principal); F10.20 Alcohol dependence, uncomplicated; F14.20 Cocaine dependence, uncomplicated; F17.210 Nicotine dependence, cigarettes, uncomplicated; F31.89 Other bipolar disorder; I10 Essential (primary) hypertension; J44.9 Chronic obstructive pulmonary disease, unspecified; J45.909 Unspecified asthma, uncomplicated; G23.8 Other specified degenerative diseases of basal ganglia; R63.4 Abnormal weight loss; Z68.25 Body mass index [BMI] 25.0-25.9, adult; Z51.81 Encounter for therapeutic drug level monitoring; Z87.442 Personal history of urinary calculi
CPT/HCPCS: 36415; 80053; 81003; 81015; 82962; 85027; 86593; 93005; 93010